=== PATIENT | male | born 1965 | race Two or more races ===

== ENCOUNTER 2018-03-30 09:35 | Emergency (ER) | payer OTHER ==
[~2018-03-30] VITALS: Ht 167.6 cm; Wt 99.8 kg
[2018-03-30 10:50] LABS: Red Cell Distribution Width 14.5 % (11.8-14.3)
[2018-03-30 10:52] LABS: Hematocrit 41.6 % (41.0-53.0); Hemoglobin 14.1 g/dL (13.5-17.5); Mean Corpuscular Hemoglobin 34.3 pg (28.0-32.0); Mean Corpuscular Volume 100.8 fL (80.0-100.0); Platelet Count (auto) 55 10^3/uL (140-450); Red Blood Cells 4.12 10^6/uL (4.5-5.90); White Blood Cell 4.1 10^3/uL (4.4-10.8)
[2018-03-30 10:58] LABS: Band Neutrophils % (manual) 0; Basophils % (manual) 0 (0.0-2.0); Blast Cells 0; Metamyelocytes % 0; Myelocytes % 0; Promyelocytes % 0; Reactive Lymphocytes 0
[2018-03-30 11:06] LABS: Albumin 2.8 g/dL (3.4-5.0); Anion Gap 7 (5-15); Blood Urea Nitrogen 7 mg/dL (7-18); Carbon Dioxide 24 mmol/L (21-32); Chloride 103 mmol/L (98-107); Glucose 115 mg/dL (74-106); Potassium 3.4 mmol/L (3.5-5.1); Sodium 134 mmol/L (136-145)
[2018-03-30 11:12] LABS: Alanine Aminotransferase 78 U/L (16-61); Alkaline Phosphatase 208 U/L (45-117); Aspartate Aminotransferase 125 U/L (15-37); BUN/Creatinine Ratio 6.4; Bilirubin, Total 7.6 mg/dL (0.2-1.0); GFR African American > 60 mL/min; GFR Non-African American > 60 mL/min; Total Protein 6.3 g/dL (6.4-8.2)
[2018-03-30 11:15] LABS: Partial Thromboplastin Time 24.9 sec (23.78-33.04); Prothrombin Time 10.7 sec (9.27-12.13)
[2018-03-30 11:54] LABS: Eosinophils % (manual) 1 (0-7); Lymphocytes % (manual) 36 (10.0-50.0); Monocytes % (manual) 9 (0-12)
[2018-03-30 12:26] LABS: Urine Bacteria NONE SEEN /hpf (None Seen); Urine Blood Negative /uL (Negative); Urine Hyaline Cast MOD /lpf (0 - 2); Urine Specific Gravity 1.007 (1.001-1.035); Urine WBC 8 /hpf (0 - 3)
[2018-03-30] MEDS ORDERED: MORPHINE SULFATE 10 MG/ML INJ 1ML SDV IV ONE (13:30)
[2018-03-30] MEDS ORDERED: VANCOMYCIN 1GM/250ML 250 ML IV ONE (14:00)
[2018-03-30] MEDS ORDERED: PIPERACILLIN-TAZOB 3.375GM 100 ML IV ONE (14:00)
[2018-03-30] MEDS ORDERED: POTASSIUM EFFERVESENT TAB 25 MEQ PO ONE (14:00)
[2018-03-30 15:08] VITALS: BP 98/63
== END 2018-03-30 16:59 | disposition home or self-care (01) ==
LOC: ER 09:35 → EDBD 09:35 → ER 16:59
DX: R56.9 Unspecified convulsions (principal); F10.230 Alcohol dependence with withdrawal, uncomplicated; J69.0 Pneumonitis due to inhalation of food and vomit; I10 Essential (primary) hypertension; Y90.0 Blood alcohol level of less than 20 mg/100 ml
CPT/HCPCS: 36415; 70450; 71045; 74176; 80053; 81001; 84484; 85007; 85027; 85610; 85730; 87040; 93005; 96365; 96368; 96375; 99284; J2270; J2543; J3370

== ENCOUNTER → 2019-05-29 | Emergency (ER) | payer OTHER ==
[~2019-05-29] VITALS: Ht 167.6 cm; Wt 111.1 kg
[~2019-05-29] MED LIST: ACETAMINOPHEN 500 MG TAB PO ONE; IBUPROFEN 800 MG TAB PO ONE
[2019-05-29 15:50] VITALS: BP 140/84
== END | disposition home or self-care (01) ==
LOC: ER 15:33
DX: S92.502A Displaced unspecified fracture of left lesser toe(s), initial encounter for closed fracture (principal); S91.112A Laceration without foreign body of left great toe without damage to nail, initial encounter; I10 Essential (primary) hypertension; W23.0XXA Caught, crushed, jammed, or pinched between moving objects, initial encounter; Y93.89 Activity, other specified; Y92.89 Other specified places as the place of occurrence of the external cause; Y99.0 Civilian activity done for income or pay
CPT/HCPCS: 73630

== ENCOUNTER 2023-02-02 13:41 | Emergency (ER) | payer OTHER ==
[~2023-02-02] VITALS: Ht 167.6 cm; Wt 107.9 kg
[2023-02-02] MEDS ORDERED: LORazepam 2MG/ML-1ML VIAL ONE (14:52)
[2023-02-02 14:56] LABS: INR 1.23 (0.9-1.15); Prothrombin Time 12.7 sec (9.3-11.8)
[2023-02-02] MEDS ORDERED: LORazepam 2MG/ML-1ML VIAL IV ONE ×3 (15:00→18:30)
[2023-02-02 15:01] LABS: Alanine Aminotransferase 115 U/L (7-40); Albumin 4.1 g/dL (3.2-4.8); Alkaline Phosphatase 203 U/L (46-116); Anion Gap 12 (5-15); Aspartate Aminotransferase 283 U/L (13-40); Blood Urea Nitrogen 5 mg/dL (9-23); Calcium 8.8 mg/dL (8.7-10.4); Carbon Dioxide 23 mmol/L (20-30); Chloride 100 mmol/L (98-107); Glucose 166 mg/dL (74-106); Lipase 68 U/L (12-53); Magnesium 1.2 mg/dL (1.6-2.6); Potassium 3.5 mmol/L (3.5-5.1); Sodium 135 mmol/L (136-145)
[2023-02-02 15:02] LABS: Bilirubin, Total 3.9 mg/dL (0.2-1.0); Total Protein 6.6 g/dL (5.7-8.2)
[2023-02-02 15:39] LABS: Basophils % (auto) 0.7 % (0.0-2.0); Eosinophils % (auto) 1.1 % (0.0-7.0); Lymphocytes % (auto) 32.5 % (10.0-50.0); Monocytes # (auto) 0.3 10 ^3/uL (0-1.3); Monocytes % (auto) 9.9 % (0.0-12.0); Neutrophils # (auto) 1.6 10 ^3/uL (1.6-8.6); Neutrophils % (auto) 55.8 % (37.0-80.0); Nucleated Red Blood Cells % 0.2 %
[2023-02-02 15:40] LABS: Basophils # (auto) 0 10 ^3/uL (0-0.2); Eosinophils # (auto) 0 10 ^3/uL (0-0.8); Hematocrit 42.4 % (41.0-53.0); Hemoglobin 14.5 g/dL (13.5-17.5); Mean Corpuscular Hemoglobin 34.7 pg (28.0-32.0); Mean Corpuscular Hgb Conc. 34.1 g/dL (32.0-36.0); Mean Corpuscular Volume 101.7 fL (80.0-100.0); Red Blood Cells 4.17 10^6/uL (4.5-5.90); Red Cell Distribution Width 15.3 % (11.8-14.3)
[2023-02-02 15:42] LABS: Macrocytosis Slight; Platelet Estimate Decreased; Stomatocytes Few
[2023-02-02 15:59] VITALS: PULSE 112; RESP 20; O2SAT 94
[2023-02-02] MEDS ORDERED: MAGNESIUM SULFATE 1GM/100ML 100 ML IV ONE (17:30)
[2023-02-02] MEDS ORDERED: levETIRAcetam 1000 mg/100ml 100 ML IV ONE (17:30)
[2023-02-02] MEDS ORDERED: PIPERACILLIN-TAZO 4.5GM 100 ML IV ONE (17:30)
[2023-02-02 19:40] VITALS: PULSE 84; RESP 17; O2SAT 93
[2023-02-03 01:48] VITALS: BP 129/82; PULSE 75; RESP 13; TEMP 98.1; O2SAT 90
== END 2023-02-03 02:00 | disposition short-term general hospital (02) ==
LOC: EDBD 13:41 → ER 13:41
DX: S00.03XA Contusion of scalp, initial encounter (principal); G45.0 Vertebro-basilar artery syndrome; G40.909 Epilepsy, unspecified, not intractable, without status epilepticus; R55 Syncope and collapse; D72.819 Decreased white blood cell count, unspecified; D69.6 Thrombocytopenia, unspecified; R74.01 Elevation of levels of liver transaminase levels; R91.1 Solitary pulmonary nodule; F10.939 Alcohol use, unspecified with withdrawal, unspecified; I10 Essential (primary) hypertension; W18.39XA Other fall on same level, initial encounter; Y93.89 Activity, other specified; Y92.89 Other specified places as the place of occurrence of the external cause; Y99.8 Other external cause status; Y90.0 Blood alcohol level of less than 20 mg/100 ml
CPT/HCPCS: 36415; 70450; 70486; 71045; 72125; 76705; 80053; 80320; 83690; 83735; 84484; 85025; 85610; 93005; 96365; 96366; 96367; 96368; 96375; 99291; J1953; J2060; J2543; J3475

== ENCOUNTER 2024-12-27 13:10 | Emergency (ER) | payer OTHER ==
[~2024-12-27] VITALS: Ht 167.6 cm; Wt 104.5 kg
[2024-12-27 13:19] VITALS: BP 141/77; RESP 20; TEMP 98.7; O2SAT 95
[2024-12-27 13:56] VITALS: PULSE 104
--- NOTE | 2024-12-27 13:56 | ED.PDOC ---
Altered Mental Status HPI Comments 59-year-old male with a medical history of hypertension and seizures, presents to the ED via EMS for an evaluation of multiple syncopal episodes. EMS reports that syncopal episode started two days ago with patient having positive trauma and presents with bruising to the left eye/forehead and right upper rib area. Patient did not have a fall this time as EMS was able to assist him down while they witnessed him lose consciousness. EMS noted the patient was alert and oriented x2 on scene but has regained more conscious numbness upon ED arrival. It is undetermined what is patient's normal baseline as on scene reported that patient is very forgetful and at times does have episodes of confusion the last for couple of minutes. No known medical history of dementia. At this time patient is able to tell us where he is at, where he lives, his name, in his eight of prior, in the reason that he is here today. Patient has taken his blood pressure medication today but has not not take in his medication such as Ambien and Seroquel. Patient does mention history of seizures although is not taking any medication for them. also mentions that patient is a heavy EtOH user but had no alcohol today Chief Complaint: Syncope Time Seen by MD: 13:22 Primary Care Provider: Cyrus Whitmore Notes: Nurses Notes, Unemployment Insurance Director Notes, Medications, Allergies Allergies: Coded Allergies: NO KNOWN ALLERGIES (Unverified , 03/30/18) Home Meds Active Scripts Levetiracetam (KEPPRA TABLET) 500 Mg Tb, 500 MG PO DAILY for 15 Days, #15 TAB Prov:MAMIE PORTER MD 12/27/24 Chlordiazepoxide Hcl (Ni-1) (I (Librium) 10 Mg Cap, 10 MG PO DAILY for 7 Days, #7 CAP Prov:MAMIE PORTER MD 12/27/24 Information Source: Patient, Emergency Med Personnel Mode of Arrival: EMS Severity: Moderate Timing: Days Duration: Since onset Quality: Decreased Alertness, Change in Behavior Recent: None History of: None Associated Signs and Symptoms: None Past Medical History PAST MEDICAL HISTORY: HTN, Liver, Seizures Surgical History: Denies all surgeries Family History Family History: Reviewed,noncontributory to illness Social History Smoker: Non-Smoker Alcohol: Heavy Drugs: Denies Drug Use Lives In: Home Constitutional: denies: chills, diaphoresis, fatigue, fever, malaise, sweats, weakness, others EENTM: denies: blurred vision, double vision, ear bleeding, ear discharge, ear drainage, ear pain, ear ringing, eye pain, eye redness, hearing loss, mouth pain, mouth swelling, nasal discharge, nose bleeding, nose congestion, nose pain, photophobia, tearing, throat pain, throat swelling, voice changes, others Respiratory: denies: cough, hemoptysis, orthopnea, SOB at rest, shortness of breath, SOB with excertion, stridor, wheezing, others Cardiovascular: reports: lightheadedness, syncope; denies: chest pain, dizzy spells, diaphoresis, Dyspnea on exertion, edema, irregular heart beat, left arm pain, palpitations, PND, others Gastrointestinal: denies: abdomen distended, abdominal pain, blood streaked bowels, constipated, diarrhea, dysphagia, difficulty swallowing, hematemesis, melena, nausea, poor appetite, poor fluid intake, rectal bleeding, rectal pain, vomiting, others Genitourinary: denies: burning, dysuria, flank pain, frequency, hematuria, incontinence, penile discharge, penile sore, pain, testicle pain, testicle swelling, urgency, others Neurological: denies: dizziness, fainting, headache, left sided numbness, left sided weakness, numbness, paresthesia, pre-existing deficit, right sided numbness, right sided weakness, seizure, speech problems, tingling, tremors, weakness, others Musculoskeletal: denies: back pain, gout, joint pain, joint swelling, muscle pain, muscle stiffness, neck pain, others Integumetry: reports: bruises; denies: change in color, change in hair/nails, dryness, laceration, lesions, lumps, rash, wounds, others Allergic/Immunocompromised: denies: Difficulty Healing, Frequent Infections, Hives, Itching, others Hematologic/Lymphatic: denies: anemia, blood clots, easy bleeding, easy bruising, swollen glands, others Endocrine: denies: excessive hunger, excessive sweating, excessive thirst, excessive urination, flushing, intolerance to cold, intolerance to heat, unexplained weight gain, unexplained weight loss, others Psychiatric: denies: anxiety, bipolar disorder, depression, hopeless, panic disorder, schizophrenia, sleepless, suicidal, others All Other Systems: Reviewed and Negative Physical Exam General Appearance: Moderate Distress HEENT: Normal ENT Inspection, Pharynx Normal, TMs Normal Neck: Full Range of Motion, Non-Tender, Normal, Normal Inspection Respiratory: Chest Non-Tender, Lungs Clear, No Accessory Muscle Use, No Respiratory Distress, Normal Breath Sounds Cardiovascular: No Edema, No JVD, No Murmur, No Gallop, Normal Peripheral Pulses, Regular Rate/Rhythm Breast Exam: Deferred Gastrointestinal: No Organomegaly, Non Tender, No Pulsatile Mass, Normal Bowel Sounds, Soft Genitalia: Deferred Pelvic: Deferred Rectal: Deferred Extremities: No calf tenderness, Normal capillary refill, Normal inspection, Normal range of motion, Non-tender, No pedal edema Musculoskeletal : Apperance: Normal Neurologic: Alert Cerebellar Function: NOT DONE Reflexes: NOT DONE Skin: Dry, Normal Color, Warm Peripheral Pulses: 3+ Radial (R), 3+ Radial (L) Lymphatic: No Adenopathy EKG EKG : Pulse Rate (adult): 104 Cardiac Rhythm: ST Was a procedure done? Was a procedure done?: No Differential Diagnosis (ALOC) Differential Diagnosis: Dehydration, Hypoxemia, Closed Head Injury, Drug Overdose, ETOH Intoxication, Heart Failure, Renal Failure X-Ray, Labs, Meds, VS Vital Signs Date Time Temp Pulse Resp B/P (MAP) Pulse Ox O2 Delivery O2 Flow Rate FiO2 12/27/24 13:56 104 12/27/24 13:19 98.7 114 20 141/77 95 98.7 12/27/24 13:13 104 Lab Test 12/27/24 13:46 Range/Units Plasma/Serum Blood Alcohol < 3.0 <10 mg/dL Current Medications Medications (Trade) Dose Ordered Sig/[place] Route Start Time Stop Time Status Last Admin Sodium Chloride 1,000 ml @ 1,000 mls/hr Q1H ONCE IV 12/27/24 13:30 12/27/24 14:29 DC 12/27/24 16:03 Sodium Chloride 1,000 ml @ 1,000 mls/hr Q1H ONCE IV 12/27/24 15:45 12/27/24 16:44 DC 12/27/24 16:03 Thiamine HCl 100 mg ONCE ONCE IV 12/27/24 15:45 12/27/24 15:46 DC 12/27/24 16:03 Lorazepam (Ativan Inj) 2 mg ONCE ONCE IV 12/27/24 15:45 12/27/24 15:46 DC 12/27/24 16:03 [place] [address] Ph: [phone] DIAGNOSTIC IMAGING Diagnostic Imaging Report : [id number] Signed PATIENT: MARTA HASKINS ACCT: [id number] UNIT: [id number] : 1965 LOC: ER ROOM / BED: / AGE / SEX: 59 / M ADM STATUS: REG ER SERVICE 1329 ORDERING PHYSICIAN: MAMIE PORTER MD PROCEDURE(s): HWOCT - HEAD WITHOUT CONTRAST REASON: fall ORDER NUMBER(s): [id number], ACCESSION NUMBER(s): [id number] Procedure: CT HEAD WITHOUT CONTRAST Study Date and Requested Time: 12/27/2024 01:49 PM History: fall Comparison: CT HEAD WITHOUT CONTRAST on DOS: 02/02/23 Dose: CTDI: 57.8 mGy DLP: 994.59 mGycm Technique: Multiplanar images obtained through the brain without intravenous contrast. Findings: Oapd-ov-xsmyccaj diffuse brain Atrophy. Mild chronic small vessel ischemic changes. No hemorrhages, masses, mass effect, midline shift, herniation or cytotoxic e medhat following a large vascular territory. No intra-axial or extra-axial fluid collections. No evidence of hydrocephalus. The basal cisterns are patent. The pituitary gland, sella and parasellar regions are unremarkable. The cerebellar tonsils are in normal position. The cerebellum is unremarkable. The orbits and globes are unremarkable. Polypoid mucoperiosteal thickening of the maxillary sinuses and inferior frontal sinuses with minimal mucoperiosteal thickening of the ethmoid air cells. The mastoids are clear. There are no worrisome calvarial lesions. Mild left forehead soft tissue edema/ hematoma with minimal left parietal and occipital scalp edema. Impression: No evidence of acute intracranial abnormality. Mild left forehead soft tissue edema/ hematoma with minimal left parietal and occipital scalp edema. ATED BY: DIANNA MEJIA DO DICTATED DATE/TIME: 12/27/241420 SIGNED BY: DIANNA MEJIA DO SIGNED DATE/TIME: 12/27/241420 CC: Patient alert. Possible seizure. Not witnessed by family. Vitals stable. Has a old injury on his left side of his face. He does have frequent falls. Possibly from alcohol medication. He does have a history of drinking alcohol. Establish intravenous access. Was given fluids pain Was given thiamine. Explained to the patient. Continue to monitoring. Patient insists on leaving. He was given prescription of Librium. Tried to come in his symptoms stay or get transferred. Insists on leaving. Vitals stable. Time of 1ST Reevaluation: 13:56 Reevaluation 1ST: Unchanged Patient Education/Counseling: Diagnosis, Treatment, Prognosis Family Education/Counseling: No Family Present SEPSIS Sepsis Screen Physician Orders Head Without Contrast (12/27/24 13:29) Electrocardigram (12/27/24 13:44) Vital Signs Date Time Temp Pulse Resp B/P (MAP) Pulse Ox O2 Delivery O2 Flow Rate FiO2 12/27/24 13:56 104 12/27/24 13:19 98.7 114 20 141/77 95 98.7 12/27/24 13:13 104 Medications Medications Dose Ordered Sig/[place] Route Start Time Stop Time Status Last Admin Dose Admin Lorazepam 2 mg ONCE ONCE IV 12/27/24 15:45 12/27/24 15:46 DC 12/27/24 16:03 Sodium Chloride 1,000 ml @ 1,000 mls/hr Q1H ONCE IV 12/27/24 13:30 12/27/24 14:29 DC 12/27/24 16:03 Sodium Chloride 1,000 ml @ 1,000 mls/hr Q1H ONCE IV 12/27/24 15:45 12/27/24 16:44 DC 12/27/24 16:03 Thiamine HCl 100 mg ONCE ONCE IV 12/27/24 15:45 12/27/24 15:46 DC 12/27/24 16:03 Departure 1 Departure Time of Disposition: 17:15 Impression: Primary Impression: Seizure disorder Disposition: ADMITTED INPATIENT Admit to: Med Surg Condition: Guarded e-Prescriptions Levetiracetam (KEPPRA TABLET) 500 Mg Tb 500 MG PO DAILY for 15 Days, #15 TAB Prov: MAMIE PORTER MD 12/27/24 Chlordiazepoxide Hcl (Ni-1) (I (Librium) 10 Mg Cap 10 MG PO DAILY for 7 Days, #7 CAP Prov: MAMIE PORTER MD 12/27/24 Critical Care Note Critical Care Time?: No Stability Stability form required: No Heart Score Heart Score: Heart Score Response (Comments) Value History Slightly Suspicious 0 EKG Normal 0 Age 45-64 1 Risk Factors >3 or Hx ASHD 2 Troponin N/A 0 Total 3 I personally scribed for MAMIE PORTER MD ([email or web address]) on 12/27/24 at 15:54. Electronically submitted by Mansi Mansfield ([facility]). MAMIE PORTER MD Dec 27, 2024 13:56
--- NOTE | 2024-12-27 14:24 | DVH ---
Procedure: CT HEAD WITHOUT CONTRAST Study Date and Requested Time: 12/27/2024 01:49 PM History: fall Comparison: CT HEAD WITHOUT CONTRAST on DOS: 02/02/23 Dose: CTDI: 57.8 mGy DLP: 994.59 mGycm Technique: Multiplanar images obtained through the brain without intravenous contrast. Findings: Jthw-kq-moxinjyn diffuse brain Atrophy. Mild chronic small vessel ischemic changes. No hemorrhages, masses, mass effect, midline shift, herniation or cytotoxic edema following a large v ascular territory. No intra-axial or extra-axial fluid collections. No evidence of hydrocephalus. The basal cisterns are patent. The pituitary gland, sella and parasellar regions are unremarkable. The cerebellar tonsils are in nor mal position. The cerebellum is unremarkable. The orbits and globes are unremarkable. Polypoid mucoperiosteal thickening of the maxillary sinuses a nd inferior frontal sinuses with minimal mucoperiosteal thickening of the ethmoid air cells. The mast oids are clear. There are no worrisome calvarial lesions. Mild left forehead soft tissue edema/ hemat shira with minimal left parietal and occipital scalp edema. Impression: No evidence of acute intracranial abnormality. Mild left forehead soft tissue edema/ hematoma with minimal left parietal and occipital scalp edema.
[2024-12-27] MEDS: LORazepam 2MG/ML-1ML VIAL IV ONE (16:03)
[2024-12-27] MEDS: THIAMINE 100mg/ml INJ (200mg/2ml VIAL) IV ONE (16:03)
[2024-12-27] MEDS: SODIUM CHLORIDE 0.9% 1,000 ML IV ONE ×2 (16:03)
[2024-12-27] MEDS ORDERED: CHL10C PO (17:47)
[2024-12-27] MEDS ORDERED: KEP500T PO (17:48)
--- NOTE | 2024-12-28 03:09 | ECG ---
[facility] Test Date: 2024-12-27 Test Time: 13:13:53 Pat Name: MARTA HASKINS Department: [facility] ED Patient ID: [id number] Room: Gender: M Film Or Tape Librarian: ALESSANDRO : 1965 Requested By: MAMIE PORTER Order Number: [id number] Reading MD: Stephen Yarbrough Measurements Intervals [place] Rate: 104 P: 19 HI: 158 QRS: 146 QRSD: 108 T: 18 QT: 370 QTc: 487 Interpretive Statements Sinus tachycardia Probable RVH w/ secondary repol abnormality Inferior infarct, old Baseline wander in lead(s) V3 Electronically Signed On 12-28-2024 18:48:52 PDT by Stephen Yarbrough Please click the below link to view image of tracing.
== END 2024-12-27 17:50 | disposition left against medical advice (07) ==
LOC: ER 13:10 → EDBD 13:10 → ER 17:50
DX: G40.909 Epilepsy, unspecified, not intractable, without status epilepticus (principal); I10 Essential (primary) hypertension; F10.90 Alcohol use, unspecified, uncomplicated; Z79.899 Other long term (current) drug therapy; Y90.9 Presence of alcohol in blood, level not specified
CPT/HCPCS: 36415; 70450; 80320; 93005; 96361; 96374; 96375; 99285; J2060; J3411; J7030